=== PATIENT | female | born 1940 | race Caucasian/White ===

== ENCOUNTER 2020-04-07 16:11 | Emergency (ER) | payer OTHER, SELFPAY ==
[2020-04-07] VITALS (9 sets, daily range): BP systolic 147–231; BP diastolic 71–108; PULSE 62–114; RESP 18–26; TEMP 36.4; O2SAT 94–98; BMI 37.8; BMI 44.3
--- NOTE | 2020-04-07 16:44 | EKG12_ITS ---
Test Reason : NEURO Blood Pressure : / mmHG Vent. Rate : 059 BPM Atrial Rate : 059 BPM P-R Int : 226 ms QRS Dur : 070 ms QT Int : 414 ms P-R-T Axes : 025 017 028 degrees QTc Int : 409 ms Sinus bradycardia with 1st degree A-V block Otherwise normal ECG Confirmed by JUSTIN LANG ([id number]), book or script editor ASIA BARRIOS ([id number]) on 04/11/2020 2:07:40 PM Referred By: RONY Confirmed By:JUSTIN LANG
--- NOTE | 2020-04-07 16:44 | CT_ITS ---
STUDY: CT BRAIN WITHOUT CONTRAST REASON FOR EXAM: Female, 79 years old. TIA. RADIATION DOSAGE (If Supplied By Facility): CTDIvol = ( 60.81 ) mGy, DLP = ( 1044.28 ) mGycm TECHNIQUE: Transaxial CT imaging of the brain was performed without administration of intravenous contrast material. Individualized dose optimization techniques were used for this CT. COMPARISON: No relevant priors. FINDINGS: Normal soft tissue structures. Normal calvarium. Normal size ventricles and extra-axial spaces for the patient''s age. There are areas of decreased attenuation within the white matter tracts of the supratentorial brain, consistent with microvascular disease changes. 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 There are small punctate calcifications of the basal ganglia which are seen in the aging brain as a normal variant. Normal brainstem. Normal cerebellum. There is no intracranial hemorrhage. There are no findings of an acute ischemic infarction. Normal visualized paranasal sinuses. CT/Brain/Head without Contrast IMPRESSION: Chronic involutional changes without evidence of acute intracranial or calvarial abnormality. Electronically Signed: Marc Parks DO at 18:17 EDT Tel [phone], Service support ,
--- NOTE | 2020-04-07 17:02 | ED.VIS.GEN ---
History of Present Illness Chief Complaint: Neuro S/Sx Informant: Patient, Family Narrative: Patient is a 79-year-old female who presents to the emergency department for an episode of dysarthria. She was in morning prior whenever she started to slur her speech. The entire episode lasted 5 to 10 minutes. Her last known well was 8:45 AM. Her had this happen before in the past. Upon arrival patient is completely asymptomatic. She denies any headache, vision changes. No weakness or loss of sensation in any extremity. She denies any recent illnesses including any cough, cold, congestion. No fevers or chills. She denies any history of strokes in the past. She does not take any medications for yazidi purposes. She denies smoking, drinking. Past Medical History Primary Care Physician: Sanju Rolle DO [Primary Care Provider] - As soon as possible Prior records reviewed: Yes Past Medical History: - - Does not follow with a doctor Lives: With Family Smoking Status: Never smoker Alcohol: None Drugs: None Review of Systems All systems negative except as indicated General: Denies: Chills, Fever, Sweats Eyes: Denies: Visual changes - bilaterally, Diplopia ENT: Denies: Rhinorrhea, Sore throat Cardiovascular: Denies: Chest pain, Palpitations Respiratory: Reports: Cough - Chronic at baseline. Denies: Dyspnea, Dyspnea on exertion Gastrointestinal: Denies: Abdominal pain, Nausea, Vomiting, Diarrhea Genitourinary: Denies: Dysuria, Hematuria, Frequency Musculoskeletal: Denies: Back pain, Extremity Pain Skin: Denies: Rash, Wounds Neurological: Denies: Headache, Weakness, Numbness Physical Exam Inital Vital Signs reviewed: Yes General: Well nourished, Well developed, No Acute Distress Head: Normocephalic, Atraumatic Eyes: Perrl, EOMI ENT: Moist mucous membranes, No rhinorrhea Neck: Supple, Nontender Cardiovascular: Regular rate, Regular rhythm, No murmurs Respiratory: No distress, CTA bilaterally, Chest nontender Abdomen: Soft, Nontender, Nondistended, Normal bowel sounds Back: Nontender, Normal Inspection Extremities: Nontender, No edema Skin: Normal color, No rash Neurological: Alert, Oriented x3, Cranial nerves II-XII grossly intact, Normal Strength, Normal Sensation. Negative for: Left side facial droop, Right side facial droop Psychological: Normal affect, Normal Mood Diagnostic/Tx/Re-eval - EKG Initial EKG Interpretation: - - Rate of 59 bpm and normal sinus rhythm. Has a prolonged AR interval of 226 with first-degree AV block. Otherwise normal intervals. Normal axis. No ST elevations or depressions appreciated. No T wave abnormalities. - Medical Decision Making Patient is a 79-year-old female who presents to the emerge department for dysarthria. Last known well was 8:45 AM. Stroke alert was not called as her symptoms have completely resolved and she would not want to have TPA. Low concern for large vessel occlusion. I did have a long discussion with the patient and patient's family about even getting a CT scan and basic lab work. They were eventually agreeable to this. They are initially refusing aspirin at this time as well. On physical exam NIH score is 0. Patient was agreeable to doing lab work along with CT scan. She did refuse the CTA. The and the patient do not want anything foreign in her body. Risk associated with not getting a complete work-up were discussed with them. I did recommend hospitalization for MRI and further management. Her blood pressure has been elevated throughout ED stay. Again they are refusing this. Risks associated with not getting the further work-up and going home include potential stroke with significant morbidity and mortality. They understand that a TIA is a warning sign for potential worse stroke in the future. They were agreeable to her at least taking a baby aspirin. I did write a prescription for this. I did speak with the patient's son who did want her to come in for an MRI but the family is not agreeable to this so he respects her decision. I did have the patient signed out AGAINST MEDICAL ADVICE. If she changes her mind she can return to the emergency department at any time. Otherwise she needs to follow-up with her PCP. ED Disposition - Plan for ED Patient: Disposition: Against Medical Advice Diagnosis: Dysarthria, High blood pressure Instructions: ED TRANSIENT ISCHEMIC ATTACK Prescriptions: Aspirin [Aspirin, Baby] 81 mg PO DAILY@0800 30 Days #30 tab.chew Prescription Printed Referrals: Sanju Rolle DO [Primary Care Provider] - As soon as possible
--- NOTE | 2020-04-07 18:05 | RAD_ITS ---
STUDY: X-RAY CHEST REASON FOR EXAM: Female, 79 years old. TIA. Slurred speech now resolved. TECHNIQUE: Single AP portable view of the chest. COMPARISON: None. FINDINGS: Telemetry wires overlie the chest. The lungs are clear and expanded. There is no demonstrated pleural abnormality. Normal size heart. Normal mediastinum and khushboo. Normal visualized pulmonary arteries. There is atherosclerotic calcification of the aortic arch with tortuosity. The thoracic spine is obscured by the mediastinum. There is degenerative osteoarthritis of the bilateral shoulders. There is no demonstrated abnormality of the visualized soft tissue structures of the upper abdomen. RAD/Chest 1 View IMPRESSION: Degenerative changes, as described above. No demonstrated acute cardiopulmonary process. Electronically Signed: Marc Parks DO at 18:30 EDT Tel [phone], Service support ,
[2020-04-07 18:26] LABS: Bedside Glucose 95 mg/dL (70-110)
[2020-04-07 18:33] LABS: Absolute Lymphocyte Count 3.57 X10^3/uL (0.83-4.51); Absolute Neutrophil Count 4.7 X10^3/uL (2.0-7.7); Basophil# 0.05 X10^3/uL; Basophil% 0.5 % (0-1); Eosinophil# 0.27 X10^3/uL; Eosinophils% 2.9 % (0-5); Hematocrit 44.5 % (37-47); Hemoglobin 13.9 g/dL (12.0-15.0); Lymphocyte # 3.57 X10^3/ul (4.0); Lymphocyte % 38.3 % (19-41); Mean Corp Hgb Conc 31.2 g/dL (32-36); Mean Corpuscular Hgb 29.5 pg (27.0-32.0); Mean Corpuscular Volume 94.5 fL (81-99); Monocyte# 0.71 X10^3/uL; Monocyte% 7.6 % (0-10); NRBC Flagged by Analyzer 0 % (0-5); Neutrophil % 50.5 % (47-70); Platelet Count 276 K/mm3 (150-450); RBC Distribution Width SD 45.1 fl (35.1-43.9); Red Blood Count 4.71 M/mm3 (4.2-5.4); White Blood Count 9.3 K/mm3 (4.4-11.0)
[2020-04-07 18:53] LABS: Anion Gap 5 (5-15); BUN 12 mg/dL (7-18); BUN/Creat Ratio 20.9 RATIO (10-20); Calcium,Total 9.6 mg/dL (8.5-10.1); Chloride 109 mmol/L (98-107); Creatinine, Serum 0.57 mg/dL (0.55-1.02); EST Glomerular Filtration Rate 108 mL/min (>60); Est Glom Filt Rate - Afr Amer 131 mL/min (>60); Estimated Creatinine Clearance 34.99 ml/min; Glucose 100 mg/dL (74-106); Sodium Level 142 mmol/L (136-145)
--- NOTE | 2020-04-07 19:34 | ED.RN ---
pt refused the cat scan and any treatment for high bp,md aware.
== END 2020-04-07 20:30 | disposition left against medical advice (07) ==
PROVIDERS: Emergency Provider Emergency Medicine; PCP Family Medicine
DX: R47.1 Dysarthria and anarthria (principal); I10 Essential (primary) hypertension; Z53.29 Procedure and treatment not carried out because of patient's decision for other reasons; Z79.82 Long term (current) use of aspirin
CPT/HCPCS: 70450; 71045; 80048; 82962; 84484; 85025; 93005; 99285; A4216